=== PATIENT | female | born 2000 | race Two or more races ===

== ENCOUNTER 2020-06-27 18:11 | Outpatient (CLI) | payer BC, MEDICAID ==
[2020-06-27 19:00] LABS: BACTERIA (WET MOUNT) 4+ BACTERIA SEEN; EPITHELIALS (WET MOUNT) 3+ EPITHELIALS SEEN; RBCS (WET MOUNT) RARE RBCS SEEN; T.VAGINALIS (WET MOUNT) NO TRICHOMONAS SEEN; WBCS (WET MOUNT) FEW WBCS SEEN; YEAST (WET MOUNT) NO YEAST SEEN
[2020-06-27 19:09] LABS: APPEARANCE,URINE CLEAR; BILIRUBIN,URINE NEGATIVE (NEGATIVE); COLOR,URINE STRAW; GLUCOSE, URINE NEGATIVE (NEGATIVE); KETONES,URINE NEGATIVE (NEGATIVE); LEUKOCYTE ESTERASE,URINE NEGATIVE (NEGATIVE); NITRITE,URINE NEGATIVE (NEGATIVE); PROTEIN,URINE NEGATIVE (NEGATIVE); URINE SPECIFIC GRAVITY 1.008; UROBILINOGEN,URINE NEGATIVE mg/dL (<2.0)
[2020-06-27 19:33] LABS: URINE AMPHETAMINES SCREEN NEGATIVE; URINE BARBITURATES SCREEN NEGATIVE; URINE BENZODIAZEPINES SCREEN NEGATIVE; URINE COCAINE SCREEN NEGATIVE; URINE MARIJUANA (THC) SCREEN NEGATIVE; URINE METHADONE SCREEN NEGATIVE; URINE PHENCYCLIDINE SCREEN NEGATIVE
--- NOTE | 2020-06-27 20:22 | RADIOLOGY REPORT (SQ) ---
EXAM DESCRIPTION: US LIMITED COMPLETED DATE/TME: 06/27/2020 00:00 CLINICAL HISTORY: 20 years, Female, CL, 25wks cramping COMPARISON: None. TECHNIQUE: Transvaginal images of the pelvis were obtained. LIMITATIONS: None. FINDINGS: There is a single, live, intrauterine gestation in a cephalic presentation. Placenta is posterior without previa or abruption. Cervix measures 2.8 cm in length. The internal cervical os is closed. Amniotic fluid index is 15.2 cm. There is a heart rate of 160 bpm. biometry: BPD 6.4 cm 25 weeks 5 days, HC 23.7 cm 25 weeks 5 days, AC 21.3 cm 25 weeks 5 days, FL 4.7 cm 25 weeks 5 days. Average sonographic age 25 weeks 5 days, with an estimated date of confinement of October 05, 2020. Estimated weight 846 g. IMPRESSION: Single, live gestation with measurements and dates as above. copyright 2010 [employer]- All Rights Reserved
[2020-06-27 20:29] LABS: CHLAM PCR NOT DETECTED (NOT DETECT)
== END 2020-06-27 19:57 | disposition home or self-care (01) ==
LOC: LC 18:11
PROVIDERS: ATTEND Obstetrics & Gynecology
DX: O26.892 Other specified pregnancy related conditions, second trimester (principal); R10.9 Unspecified abdominal pain; Z3A.25 25 weeks gestation of pregnancy
CPT/HCPCS: 76815; 80307; 81001; 87210; 87491; 87591

== ENCOUNTER 2020-07-05 00:16 | Outpatient (CLI) | payer BC, MEDICAID ==
[2020-07-05] MEDS ORDERED: MAGNESIUM SULFATE 20 GM/500 ML RTUINJ IV PRN (01:10)
[2020-07-05] MEDS ORDERED: MAGNESIUM SULFATE 4 GM/100 ML RTUPB IV ONE ×2 (01:10→01:19)
[2020-07-05] MEDS ORDERED: AMPICILLIN SOD INJ 1 GM VIAL IV SCH (01:15)
[2020-07-05] MEDS ORDERED: ERYTHROMYCIN INJ 500 MG VIAL IV SCH (01:15)
[2020-07-05] MEDS ORDERED: BETAMET ACET/BETAMET NA INJ 6 MG/1 ML IM SCH (01:15)
[2020-07-05] MEDS ORDERED: MAGNESIUM SULFATE 20 GM/500 ML RTUINJ IV ONE (01:19)
[2020-07-05] MEDS ORDERED: AMPICILLIN SOD INJ 2 GM VIAL ONE (01:19)
[2020-07-05] MEDS ORDERED: ERYTHROMYCIN INJ 500 MG VIAL IV ONE ×2 (01:19→02:07)
[2020-07-05] MEDS ORDERED: ERYTHROMYCIN INJ 500 MG VIAL IV PRN (01:19)
[2020-07-05] MEDS ORDERED: BETAMET ACET/BETAMET NA INJ 6 MG/1 ML ONE (01:20)
[2020-07-05] MEDS ORDERED: AMPICILLIN SOD INJ 2 GM VIAL IV PRN (01:20)
[2020-07-05 01:30] LABS: APPEARANCE,URINE CLEAR; BILIRUBIN,URINE NEGATIVE (NEGATIVE); COLOR,URINE STRAW; GLUCOSE, URINE NEGATIVE (NEGATIVE); KETONES,URINE NEGATIVE (NEGATIVE); LEUKOCYTE ESTERASE,URINE NEGATIVE (NEGATIVE); NITRITE,URINE NEGATIVE (NEGATIVE); PROTEIN,URINE NEGATIVE (NEGATIVE); URINE SPECIFIC GRAVITY 1.005; UROBILINOGEN,URINE NEGATIVE mg/dL (<2.0)
[2020-07-05] MEDS ORDERED: ERYTHROMYCIN LACTOBIONATE 250 MG in NORMAL SALINE 100 ML IV SCH (01:30)
[2020-07-05] MEDS ORDERED: AMPICILLIN SODIUM 2 GM in NORMAL SALINE 100 ML IV SCH (01:30)
[2020-07-05 01:34] LABS: PROTHROMBIN TIME 13.4 SEC (11.4-15.4)
[2020-07-05 01:35] LABS: FIBRINOGEN 375 mg/dL (209-497); PARTIAL THROMBOPLASTIN TIME 26.7 SEC (23.5-35.8)
[2020-07-05 01:45] LABS: ABSOLUTE MONOCYTES (AUTO) 0.8 10^3/uL (0.1-1.4); ABSOLUTE NEUT (AUTO) 6.9 10^3/uL (1.7-8.2); BASOPHILS % (AUTO) 0.3 % (0-2); EOSINOPHILS % (AUTO) 0.2 % (0-6); HEMOGLOBIN 11.3 g/dL (12.0-15.5); MEAN CORPUSCULAR HEMOGLOBIN 29.3 pg (27.0-33.4); MEAN CORPUSCULAR HGB CONC 34.2 g/dL (32.0-36.0); MEAN CORPUSCULAR VOLUME 86 fl (80-97); MONOCYTES % (AUTO) 8.7 % (3-13); PLATELET COUNT 261 10^3/uL (150-450); RED BLOOD COUNT 3.85 10^6/uL (3.72-5.28); RED CELL DISTRIBUTION WIDTH 13.8 % (11.5-14.0); SEGMENTED NEUTROPHILS % (AUTO) 70.8 % (42-78); TOTAL CELLS COUNTED % (AUTO) 100 %; WHITE BLOOD COUNT 9.8 10^3/uL (4.0-10.5)
[2020-07-05 01:45] LABS: URINE AMPHETAMINES SCREEN NEGATIVE; URINE BARBITURATES SCREEN NEGATIVE; URINE BENZODIAZEPINES SCREEN NEGATIVE; URINE COCAINE SCREEN NEGATIVE; URINE MARIJUANA (THC) SCREEN NEGATIVE; URINE METHADONE SCREEN NEGATIVE; URINE PHENCYCLIDINE SCREEN NEGATIVE
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
--- NOTE | 2020-07-05 03:20 | RADIOLOGY REPORT (SQ) ---
Ultrasound OB limited on 07/05/2020 at 1:15 AM CLINICAL INDICATION: Prolonged premature rupture of membranes, evaluate weight, placenta and lie and amniotic fluid index COMPARISON: 06/27/2020 FINDINGS: Limited sonographic images are obtained throughout the pelvis by transabdominal approach, both transverse and sagittal images are obtained. Single living intrauterine fetus is noted with positive cardiac activity with a heart rate 169 bpm. Fetus is in cephalic presentation. Cervical length measures approximately 3.7 cm and the cervix appears closed. Placenta is posterior to fundal in location with no evidence of placenta previa or abruption. Amniotic fluid index measures 5.8 cm however the largest vertical pocket that was measured separate from this measured 4.28 cm. Estimated gestational age by measurements is an approximate 26 week six day gestation. Estimated weight is 959 g +/- 142 g which is at the 44th percentile. No gross abnormality is noted on limited imaging. IMPRESSION: 1. Single living approximately 26 week six day intrauterine fetus in cephalic presentation. 2. Mild oligohydramnios as above.
== END 2020-07-05 08:16 | disposition short-term general hospital (02) ==
LOC: LC 00:16
PROVIDERS: ATTEND Obstetrics & Gynecology
DX: O42.912 Preterm premature rupture of membranes, unspecified as to length of time between rupture and onset of labor, second trimester (principal); Z3A.26 26 weeks gestation of pregnancy
CPT/HCPCS: 86900; 86901; 36415; 86850; 85025; 85384; 85610; 85730; 81001; 87081; 80307; 84112; 76815; 59899; Q0114; U0003; J3475 ×2; J0290; J0702; J1364; C9803; 87635; J7050